=== PATIENT | male | born 1985 | race African-American/Black ===

== ENCOUNTER 2018-04-27 14:04 | Outpatient (CLI) | payer BC | END 2018-04-27 14:05 | disposition home or self-care (01) | LOC: BICRAD 14:04 | PROVIDERS: ATTEND Family Medicine | DX: M25.512 Pain in left shoulder (principal) ==

== ENCOUNTER 2018-09-23 08:09 | Outpatient (CLI) | payer OTHER ==
--- NOTE | 2018-09-23 12:11 | MRI ---
MRI RIGHT SHOULDER WITHOUT CONTRAST: INDICATIONS: History of right shoulder injury. FINDINGS: There is a high-grade bursal surface tear involving the mid supraspinatus, at the footprint, measurin g 1.5 x 1.2 cm. There is a small intratendinous delaminating tear involving the anterior infraspinat us, on image 14 of series 5, measuring 4.4 mm. There is mild supraspinatus and infraspinatus tendino sis, intact. There is high linear T2 signal seen within the posterior glenoid labrum, most evident o n image 15 of series 4 and image 19 of series 7,suspicious for a posterior and poseterior superior gl enoid labral tear. There is a small amount of fluid in the subacromial, subdeltoid bursa. There is mild AC joint osteoarthrosis. There is a small effusion involving the AC joint. There is edema with in the distal clavicle. No muscular atrophy is evident. The inferior glenohumeral labral ligamentou s complex is normal appearing. IMPRESSION: 1. High grade bursal surface tear of the mid supraspinatus. 2. Small low grade intratendinous delaminating tear of the anterior infraspinatus. 3. Findings suspicious for a linear glenoid labral tear involving the superior and posterior glenoid labrum, without evidence of a paralabral cyst. 4. Findings suspicious for a grade 1 acromioclavicular separation. There is edema involving the acr omioclavicular joint with high T2 signal involving the acromioclavicular ligaments and edema seen wit hin the distal clavicle. POS: [facility]
--- NOTE | 2018-09-23 13:01 | MRI ---
MRI OF THE RIGHT UPPER EXTREMITY WITHOUT CONTRAST: COMPARISON: MRI of the right shoulder dated 09/23/2018 and right shoulder radiograph dated 08/15/2018. FINDINGS: The long head of the biceps tendon and distal biceps insertion is intact. There is no evidence for f ull-thickness tear. There is no edema present within the anterior compartment of the right arm. The triceps musculature appears within normal limits. No lymphadenopathy is evident. No definite bone marrow signal abnormality is evident. IMPRESSION: The biceps appears intact. Its proximal tendon and distal tendons appear within normal limits. The proximal long head of the biceps tendon on the MRI of the right shoulder performed separately appears intact and located within the bicipital groove. POS: [facility]
== END 2018-09-23 08:10 | disposition home or self-care (01) ==
LOC: TBSIIMAG 08:09
PROVIDERS: ATTEND Family Medicine
DX: S43.50XA Sprain of unspecified acromioclavicular joint, initial encounter (principal); S43.421A Sprain of right rotator cuff capsule, initial encounter

== ENCOUNTER 2018-11-23 06:26 | Outpatient (CLI) | payer BC ==
[2018-11-23 13:28] LABS: Hemoglobin 14.5 g/dL (14.0-18.0); Mean Corpuscular HGB CONC 31.6 g/dL (32.0-36.0); Mean Corpuscular Hemoglobin 27.4 pg (27.0-31.0); Mean Corpuscular Volume 86.6 fL (78.0-98.0); Mean Platelet Volume 7.6 fL (7.4-10.4); Platelet Count 311 thou/uL (130-400); RBC Distribution Width 12.8 % (11.5-14.5); Red Blood Cell (RBC) Count 5.28 mill/uL (4.70-6.10); White Blood Cell (WBC) Count 8.9 thou/uL (4.8-10.8)
== END 2018-11-23 06:27 | disposition home or self-care (01) ==
LOC: LABBT 06:26
PROVIDERS: ATTEND Orthopaedic Surgery
DX: Z01.812 Encounter for preprocedural laboratory examination (principal); M75.101 Unspecified rotator cuff tear or rupture of right shoulder, not specified as traumatic; S43.401A Unspecified sprain of right shoulder joint, initial encounter

== ENCOUNTER → 2018-11-24 | Day surgery (SDC) | payer OTHER ==
[~2018-11-24] MED LIST: Bupivacaine/Epinephrine 0.25% 30 ML VIAL ONE; CEFAZOLIN 2 GM/50 ML BAG ONE; Dexamethasone 20 MG/5 ML VIAL ONE; Fentanyl 100 MCG/2 ML VIAL ONE; Fentanyl 100 MCG/2 ML VIAL SLOW IVP PRN; HYDROcodone/Acetaminophen 5/325 mg Tablet ONE; HYDROcodone/Acetaminophen 7.5/325 mg Tablet PO PRN; Ketorolac Tromethamine 30 MG/ML VIAL IVP SCH; Lidocaine 1% PF 5 ML VIAL ONE; Meperidine HCl/PF 25 MG/ML VIAL ONE; Midazolam HCl 2 mg/2 ml Vial ONE; Ondansetron PF 4 MG/2 ML Vial IVP PRN; PHENYLEPHRINE-NS 100 MCG/ML 10 ML SYRINGE ONE; PROPOFOL 200 MG/20 ML VIAL ONE; Promethazine HCl 25 MG/ML VIAL IM PRN; Promethazine HCl 25 MG/ML VIAL ONE; Ropivacaine 0.2% 550 ML 550 ML NERVE BLCK SCH; Ropivacaine 0.2% HCl/PF (40 MG/20 ML VIAL) ONE; Ropivacaine 0.5% HCl/PF (150 MG/30 ML VIAL) ONE; Scopolamine 1.5 mg/72 hour Patch ONE; Zolpidem Tartrate 5 MG TAB PO PRN; traMADol HCl 50 MG TAB PO PRN
--- NOTE | 2018-11-25 08:31 | OP ---
DATE OF PROCEDURE: 11/24/2018 PREOPERATIVE DIAGNOSIS: High-grade partial-thickness tear leading edge supraspinatous with acromioclavicular joint sprain and nondisplaced labral tear. POSTOPERATIVE DIAGNOSES: 1. High-grade near partial-thickness rotator cuff repair. 2. Acromioclavicular joint sprain. 3. No definitive labral tear. PROCEDURE: 1. Rotator cuff repair MOBILE QA TESTER: None. ANESTHESIA: Dr. Ennis. The patient received a general intubation. ESTIMATED BLOOD LOSS: 30 mL. TOURNIQUET TIME: None. IMPLANTS: A 5.5 Arthrex metal corkscrew and a 4.75 SwiveLock. ANTIBIOTICS: Ancef 2 g. COMPLICATION: None. HISTORY OF PRESENT ILLNESS: Mr. Bill is a 33-year-old male who had a fall while at work. He works at the [employer]. On 08/12/2018, the patient had immediate pain over his dislocation. The patient then said he continued to have pain with activities. The patient had undergone conservative measures with injection therapy and anti-inflammatories and failed conservative measures. He was cleared based on his MRI for a right rotator cuff and evaluation of his labral tear. I discussed with the patient risks and benefits of surgery, pain, scar, bleeding, infection, damage to vital structures, decreased range of motion or strength, continued pain despite surgical intervention, stiffness, arthritis, failed repair, infection, loss of life or limb. The patient understood the risks and benefits and elected to proceed. DESCRIPTION OF PROCEDURE: Time-out was performed designating the patient's right upper extremity as the operative site based on site, consents and marking. Posterior working portal and anterior working portal were placed, visualized intra-articularly. There was some degenerative labrum, but there was no full-thickness tear of the labrum. There was one edge where I kind of pushed through portion of either a Cavalier complex or just from the anchor, just kind of thinned at one width anteriorly since the patient did not have a dislocation event. I did not elect to repair or fix it. Otherwise, labrum was appeared to be intact throughout 360 degrees. I looked over everything, pulled the biceps into position, moved to sub-acromion and decompressed all the bursa and I found the edge of the footprint of the tear. I was able to pass into the small defect, I created a britton and burred a spot for footprint for anchor. I placed a 5.5 corkscrew in position, passed 4 sutures of horizontal mattress stitches to sew the tendon down. I then passed a second lateral row to tension it down. I cut the sutures; I did this through a lateral and anterolateral acromion stab hole into the anterior hole that I had placed. I then looked back in the joint to make sure the biceps had not been tethered, which had not been. I then completed my procedure and closed with 3-0 nylon. This will be in rotator cuff protocol. The patient's outlook is guarded. Job ID: [id number] [facility]
== END ==
LOC: SDC 09:11
PROVIDERS: ATTEND Orthopaedic Surgery
PROC: 0LQ14ZZ Repair Right Shoulder Tendon, Percutaneous Endoscopic Approach (ICD-10-PCS; principal; 2018-11-24)
DX: M75.111 Incomplete rotator cuff tear or rupture of right shoulder, not specified as traumatic (principal)
CPT/HCPCS: 96374; A4306; C1713; J1100; J2001; J2175; J2250; J2550; J2704; J2795; J3010